=== PATIENT | female | born 1985 | race Caucasian/White ===

== ENCOUNTER 2022-01-15 09:12 | Outpatient (CLI) | payer BC ==
[2022-01-15 10:31] LABS: HCT - HEMATOCRIT 38.4 % (37.0-47.0); HGB - HEMOGLOBIN 13.3 g/dL (12.0-16.0); MEAN CORPUSCULAR HEMOGLOBIN 31.4 pg (27.0-31.0); MEAN CORPUSCULAR HGB CONC 34.6 g/dL (32.0-36.0); MEAN CORPUSCULAR VOLUME 90.8 fL (81.0-99.0); MEAN PLATELET VOLUME 9.8 fL (7.9-10.8); RED BLOOD COUNT 4.23 10^6/uL (4.20-5.40); RED CELL DISTRIBUTION WIDTH 13.1 % (12.0-15.0); WHITE BLOOD COUNT 14.4 x10^3/uL (4.8-10.8)
== END 2022-01-15 09:13 | disposition home or self-care (01) ==
LOC: LAB 09:12
PROVIDERS: ATTEND Nurse Practitioner Obstetrics & Gynecology
DX: Z36.9 Encounter for antenatal screening, unspecified (principal)
CPT/HCPCS: 36415; 82950; 85027

== ENCOUNTER 2022-02-04 16:32 | Outpatient (CLI) | payer BC ==
--- NOTE | 2022-02-05 11:07 | Ultrasound Report ---
PROCEDURE: OB F/U or Repeat INDICATIONS: SUPERVISION OF MATT OUTSIDE/PRIOR DATING DATA: Last menstrual period (LMP): 06/26/2021. LMP-based estimated date of delivery (SEE): 04/02/2022. First dating scan (date and location): Merged With [facility]. Estimated date of delivery (SEE) from first dating scan: 11/18/2021. The below data below was generated using the ultrasound SEE of 03/31/2022 TECHNIQUE: Real-time scanning was performed of the fetus, with image documentation and biometric measurements. T he COMPARISON: Merged With [facility] dated 11/18/2021 FINDINGS: General: A single living intrauterine gestation is present. Presentation: Vertex Placenta: Placental position is anterior, without previa. Amniotic fluid index: 18.6 cm, normal for gestational age. Largest pocket 6.2 cm heart rate: 155 beats per minute. Maternal cervical canal: 4.2 cm long; normal length is 2.5 cm or more. anatomy: Neuro, nuchal skin fold, face, spine, stomach, cord, and extremities were normal on prior ultrasound on 11/18/2021. Four-chamber view: Normal Outflow tracts: Normal Chest/diaphragm: Normal Stomach/abdomen: Normal Right kidney: Normal Left kidney: Normal Urinary bladder/pelvis: Normal IMPRESSION: 1. 32 week 1 day gestation by initial ultrasound. 2. Completion of anatomic survey. 3. SHAYLA 18.6 cm. Reviewed by: Eb Sahu on 02/05/2022 11:05 AM MANISHA Approved by: Eb Sahu on 02/05/2022 11:05 AM PDT Station ID: [id number]
== END 2022-02-04 16:33 | disposition home or self-care (01) ==
LOC: DI 16:32
PROVIDERS: ATTEND Nurse Practitioner Obstetrics & Gynecology
DX: Z34.03 Encounter for supervision of normal first pregnancy, third trimester (principal); Z3A.32 32 weeks gestation of pregnancy; Z36.89 Encounter for other specified antenatal screening

== ENCOUNTER 2022-03-28 07:12 | Inpatient (IN) | payer BC ==
[2022-03-28] MEDS ORDERED: METHYLERGONOVINE 0.2 MG/ML VIAL IM PRN (09:47)
[2022-03-28] MEDS ORDERED: NIFEdipine 10 MG CAPSULE PO PRN (09:47)
[2022-03-28] MEDS ORDERED: miSOPROStoL 200 MCG TABLET BC PRN (09:47)
[2022-03-28] MEDS ORDERED: OXYTOCIN 10 UNIT/ML VIAL IM PRN (09:47)
[2022-03-28] MEDS ORDERED: miSOPROStoL 200 MCG TABLET PR PRN (09:47)
[2022-03-28] MEDS ORDERED: TERBUTALINE 1 MG/ML VIAL SUBQ PRN (09:47)
[2022-03-28] MEDS ORDERED: SODIUM CHLORIDE FLUSH 0.9% 10 ML SYRINGE IVP PRN (09:47)
[2022-03-28] MEDS ORDERED: LABETALOL 20 MG/4 ML SYRINGE IVP PRN ×3 (09:47)
[2022-03-28] MEDS ORDERED: hydrALAZINE INJ 20 MG/ML VIAL IVP PRN ×2 (09:47)
[2022-03-28] MEDS ORDERED: TRANEXAMIC ACID IN NACL 1,000 MG/100 ML BAG IV PRN (09:47)
[2022-03-28] MEDS ORDERED: LIDOCAINE-MPF 1% 30 ML VIAL ID PRN (09:47)
[2022-03-28] MEDS ORDERED: OXYTOCIN/SODIUM CHLORIDE 500 ML IV PRN (09:47)
[2022-03-28] MEDS ORDERED: fentaNYL 100 MCG/2 ML VIAL IVP PRN (09:47)
[2022-03-28] MEDS ORDERED: CARBOPROST TROMETHAMINE 250 MCG/ML AMP IM PRN (09:47)
--- NOTE | 2022-03-28 09:56 | HISTORY & PHYSICAL EXAMINATION ---
Admit History - Visit Reason Visit Reason: Contractions - : 3 Parity: 2 Premature: 0 Ectopic: 0 : 0 Care: positive: [facility] Risk/History: positive: None Complications This : positive: None Smoking Status: Never smoker - Mother's Labs Mother's RH: positive: Positive GBS: positive: Group B Step Negative Rubella Status: positive: Immune Review of Systems - Constitutional Constitutional: denies: Fatigue, Fever, Chills, Malaise - Eyes Eyes: denies: Blurred vision, Spots in vision, Dipolpia - Cardiovascular Cariovascular: denies: Irregular heart rate, Chest pain, Edema - Respiratory Respiratory: denies: Cough, SOB at rest - Gastrointestinal Gastrointestinal: denies: Constipation, Diarrhea, Nausea, Vomiting - Integumentary Integumentary: denies: Rash, Pruritis - Neurological Neurological: denies: Headache - Psychiatric Psychiatric: denies: Depression, Anxiety Physical - Abdominal Exam Vital Signs: Temp Pulse Resp BP Pulse Ox 37.2 C 87 18 111/54 L 03/28/22 07:33 03/28/22 07:33 03/28/22 07:33 03/28/22 07:33 Contraction Intensity: positive: Moderate Uterine Resting Tone: positive: Soft - Monitoring Heart Rate Baseline: 150 Strip Review: positive: Category I - Presentation Presentation: positive: Vertex - Vaginal Exam Membranes: positive: Membranes intact Dilation (in cm): 3-4 Effacement (%): 50 Station: positive: -3 Cervical Position: positive: Posterior - Speculum Exam Speculum Exam Performed: positive: No Plan for Labor - Plan For Labor I expect patient to be DC'd or transferred within 96 hours.: Yes Plan for Labor: HPI: This 37yo @ 39.2wks gestation by LMP c/w 10.2wk U/S presents to [facility] with c/o contractions that began this morning at 0430. She denies vaginal bleeding or leakage of fluid and reports +FM. Upon arrival cervical was 3/50/-3, posterior and vertex with repeat SVE 1.5 hrs later 3-4/50/-3 and vertex. She continues to contract ever 2-5 minutes lasting 45-90 seconds with soft resting tone. She strongly desires to be admitted for management of labor and requests epidural. She has been a patient of [facility] since her transfer of care from [facility] at 27wks gestation. She has received consistent care through the duration of her which has remained uncomplicated. She is supported by her Neal and her sister Daphne. She will be admitted for labor augmentation. Dating Criteria: LMP 06/27/2021 Initial U/S @ 10.4wks gestation c/w LMP dating Serial exams: agree OB Hx: G1: 04/27/2018 @ 40.3, intact, female, [id number], epidural G2: 07/18/2020 @ 40.0, intact, female, 8lb4oz, epidural G3: current Medications: PNV Allergies: NKDA PMHx: HPV Surgical Hx: none Social Hx: Former social smoker. No ETOH or IVDA. Family Hx: craniosynestosis from early fusion of skull plate (daughter): Heart disease - MGF; HTN-MGF; Diabetes - mother, MGF; Depression - PGF, sister course: LMP 06/27/2021 Initial U/S @ 10.4wks gestation c/w LMP dating FINAL SEE 04/02/2022 __Positive; antibody negative Rubella immune; VZV immune NIPPS- negative; sex -female 12.4wk nuchal translucency 1.3 (WNL) FAS WNL with the exception or poor visualization of diaphragm. Anterior placenta, no previa. Size c/w dating. Completion FAS WNL 1hr GTT 136 GBS negative HSV - denies in self and partner Physical exam: Normocephalic, atraumatic Heart RRR w/o M/G/R Lungs CTAB Abdomen gravid, soft, nontender FHR baseline 150s, moderate variability, + accels, no decels Contractions palpate moderate every 3-5 minutes with soft resting tone SVE 3-4/50/-3, posterior. Vertex. Membranes intact. Bilateral LE's 1+ edema. Mood is good Assessment: 37yo @ 39.2wks gestation by LMP c/w 10.2wk U/S Early labor GBS neg FHR Category I Plan: Admit for active management of labor. Continuous monitoring. Epidural per maternal request. Initiate pitocin for labor augmentation with titration per procotol. [place] PRN. Nitrous oxide PRN. Anticipate .
[2022-03-28] MEDS ORDERED: SODIUM CHLORIDE FLUSH 0.9% 10 ML SYRINGE IVP SCH (10:00)
[2022-03-28] MEDS ORDERED: LACTATED RINGERS 1,000 ML ONE ×2 (10:13→14:44)
[2022-03-28 10:49] LABS: BASOPHILS # (AUTO) 0.1 10^3/uL (0.0-0.1); BASOPHILS % (AUTO) 0.4 %; EOSINOPHILS % (AUTO) 0.3 %; HCT - HEMATOCRIT 37.4 % (37.0-47.0); HGB - HEMOGLOBIN 12.6 g/dL (12.0-16.0); LYMPHOCYTES # (AUTO) 2.6 10^3/uL (1.5-3.5); LYMPHOCYTES % (AUTO) 18.8 %; MEAN CORPUSCULAR HEMOGLOBIN 29.6 pg (27.0-31.0); MEAN CORPUSCULAR HGB CONC 33.7 g/dL (32.0-36.0); MEAN PLATELET VOLUME 12.4 fL (7.9-10.8); MONOCYTES % (AUTO) 7.1 %; NEUTROPHILS % (AUTO) 72.5 %; PLT - PLATELET COUNT 191 10^3/uL (130-450); RED BLOOD COUNT 4.25 10^6/uL (4.20-5.40); RED CELL DISTRIBUTION WIDTH 12.4 % (12.0-15.0); WHITE BLOOD COUNT 13.8 x10^3/uL (4.8-10.8)
[2022-03-28] MEDS ORDERED: ROPIVACAINE 0.2% 200 MG/100 ML BAG EP ONE (11:46)
[2022-03-28] MEDS: OXYTOCIN/SODIUM CHLORIDE 500 ML IV SCH (12:20)
[2022-03-28] MEDS ORDERED: NALOXONE 0.4 MG/ML VIAL IVP PRN (12:54)
[2022-03-28] MEDS ORDERED: NALBUPHINE 10 MG/ML AMP IVP PRN (12:54)
[2022-03-28] MEDS ORDERED: diphenhydrAMINE INJ 50 MG/ML VIAL IVP PRN (12:54)
[2022-03-28] MEDS ORDERED: ePHEDrine 50 MG/ML VIAL IVP PRN (12:54)
[2022-03-28] MEDS ORDERED: ONDANSETRON 4 MG/2 ML VIAL IVP PRN (12:54)
[2022-03-28] MEDS ORDERED: METOCLOPRAMIDE 10 MG/2 ML VIAL IVP PRN (12:54)
[2022-03-28] MEDS ORDERED: ROPIVACAINE 0.2% 200 MG/100 ML BAG EP PRN (12:54)
--- NOTE | 2022-03-28 12:54 | ANESTHESIA ---
Pre-Anesthesia VS, & Labs - Diagnosis active labor - Procedure labor epidural Vital Signs: Temp Pulse Resp BP Pulse Ox 37.2 C 87 18 111/54 L 03/28/22 11:34 03/28/22 07:33 03/28/22 07:33 03/28/22 07:33 Height: 5 ft 7 in - NPO Other (ate 1130) - Is Patient ?: Yes - Lab Results Current Lab Results: Laboratory Tests 03/28/22 10:30: WBC 13.8 H, RBC 4.25, Hgb 12.6, Hct 37.4, MCV 88.0, MCH 29.6, MCHC 33.7, RDW 12.4, Plt Count 191, MPV 12.4 H, Neut # (Auto) 10.0 H, Lymph # (Auto) 2.6, [place] # (Auto) 1.0, Eos # (Auto) 0.0, Baso # (Auto) 0.1, Absolute Nucleated RBC 0.00, Nucleated RBC % 0.0 03/28/22 10:30: Blood Type AB POSITIVE, Antibody Screen NEGATIVE Fish Bones: 03/28/22 10:30 Home Medications and Allergies Active Medications Carboprost Tromethamine (Carboprost Tromethamine 250 Mcg/Ml Amp) 250 mcg IM .ONCE PRN PRN Reason: Hemorrhage Fentanyl (Fentanyl 100 Mcg/2 Ml Vial) 50 mcg IVP Q1H PRN PRN Reason: Severe Pain (score 7-10) Hydralazine HCl (Hydralazine Inj 20 Mg/Ml Vial) 5 - 10 mg IVP Q20M PRN; Protocol PRN Reason: SBP> or= 160 OR DBP> or= 110 Hydralazine HCl (Hydralazine Inj 20 Mg/Ml Vial) 10 mg IVP .ONCE PRN; Protocol PRN Reason: SBP> or= 160 OR DBP> or= 110 Oxytocin/Sodium Chloride (Pitocin/Sodium Chloride) 500 mls @ 999 mls/hr IV PRN PRN; Protocol PRN Reason: POST- HEMORR PREVENTION Tranexamic Acid (Tranexamic 1,000 Mg/100ml-Nacl) 1,000 mg in 100 mls @ 600 mls/hr IV Q30M PRN PRN Reason: EBL >1200mL and within 3hr Oxytocin/Sodium Chloride (Pitocin/Sodium Chloride) 500 mls @ 1 mls/hr IV TITR MICHELE; Protocol Labetalol HCl (Labetalol 20 Mg/4 Ml Syringe) 20 - 80 mg IVP Q10M PRN; Protocol PRN Reason: SBP> or= 160 OR DBP> or= 110 Labetalol HCl (Labetalol 20 Mg/4 Ml Syringe) 20 mg IVP .ONCE PRN; Protocol PRN Reason: SBP> or= 160 OR DBP> or= 110 Labetalol HCl (Labetalol 20 Mg/4 Ml Syringe) 20 - 40 mg IVP Q10M PRN; Protocol PRN Reason: SBP> or= 160 OR DBP> or= 110 Lidocaine HCl (Lidocaine-Mpf 1% 30 Ml Vial) 30 ml ID ONCE PRN PRN Reason: PERINEAL REPAIR Stop: 03/29/22 09:47 Methylergonovine Maleate (Methylergonovine 0.2 Mg/Ml Vial) 0.2 mg IM .ONCE PRN PRN Reason: Hemorrhage Misoprostol (Misoprostol 200 Mcg Tablet) 600 mcg BC .ONCE PRN PRN Reason: Hemorrhage Misoprostol (Misoprostol 200 Mcg Tablet) 800 mcg MT .ONCE PRN PRN Reason: Hemorrhage Nifedipine (Nifedipine 10 Mg Capsule) 10 - 20 mg PO Q20M PRN; Protocol PRN Reason: SBP> or= 160 OR DBP> or= 110 Oxytocin (Oxytocin 10 Unit/Ml Vial) 10 unit IM .ONCE PRN PRN Reason: Step One if no IV access. Sodium Chloride (Sodium Chloride Flush 0.9% 10 Ml Syringe) 10 ml IVP PRN PRN PRN Reason: NEEDED PER PROVIDER ORDERS Sodium Chloride (Sodium Chloride Flush 0.9% 10 Ml Syringe) 10 ml IVP Q8H MICHELE Terbutaline Sulfate (Terbutaline 1 Mg/Ml Vial) 0.25 mg SUBQ .ONCE PRN PRN Reason: Tachystole Anes History & Medical History - Anesthetic History Anesthesia Complications: reports: No previous complications Family history of Anesthesia Complications: Denies Family history of Malignant Hyperthermia: Denies - Medical History Cardiovascular: reports: None Pulmonary: reports: None Gastrointestinal: reports: None Urinary: reports: None Neuro: reports: None Smoking Status: Never smoker - Obstetrical History : 3 Parity: 2 Events: reports: None Complications: reports: None Exam General: Alert, Oriented x3, Cooperative Dental: WNL Mouth Openin Fingerbreadth Neck Mobility: Normal Mallampati classification: II Thyromental Distance: 4-6 cm Respiratory: Lungs clear Cardiovascular: Regular rate Plan Anesthesia Type: Epidural Consent for Procedure(s) Verified and Reviewed: Yes Code Status: Attempt Resuscitation ASA classification: 2-Mild systemic disease Is this case an emergency?: No
--- NOTE | 2022-03-28 12:54 | ANESTHESIA PROCEDURE NOTE ---
Anesthesia Epidural Template - Patient Report Patient Reports: positive: Pain controlled - Plan Plan: positive: Continue current management
[2022-03-28] MEDS ORDERED: ONDANSETRON 4 MG/2 ML VIAL ONE (14:08)
--- NOTE | 2022-03-28 14:51 | CONSULTATION NOTE ---
Consultation Report: pt c/o feeling too numb and heavy in her legs, with barely noticeable contractions. pt would like to decrease epidural dose. epidural rate decreased from 10cc IB q45min to 8cc IB Q45min. Pt educated about what to look for and expected time frame to notice change in sensation, considering next bolus due in 24min. pt states understanding and is agreeable.
[2022-03-28] MEDS: LACTATED RINGERS 1,000 ML IV SCH (15:01)
[2022-03-28] MEDS ORDERED: WITCH HAZEL/GLYCERIN 1 PAD TOP PRN (17:44)
[2022-03-28] MEDS ORDERED: HYDROCORTISONE 1% CREAM 28 GM TUBE PR PRN (17:44)
--- NOTE | 2022-03-28 17:48 | PROVIDER PROGRESS NOTE ---
Labor Progress Note - Uterine Monitoring Uterine Monitoring Mode: positive: External toco Contraction Intensity: positive: Strong Uterine Resting Tone: positive: Soft - Monitoring Monitor Mode: positive: External ultrasound Heart Rate Baseline: 150 Heart Rate Variability: positive: Moderate (6-25 bmp) Accelerations: positive: Present, 15x15 Decelerations: positive: None Strip Review: positive: Category I - Vaginal Exam Dilation (in cm): 6 Effacement (%): 80 Station: -2 Cervical Position: Midposition - Labor Progress Note Labor Progress Note/Additional Text: S: Feeling comfortable with her epidural. and sister supportive at the bedside. O: FHR baseline 150s, moderate variability, + accels, no decels Contractions palpate strong every 2-4 minutes with soft resting tone AROM large amount of clear fluid A: 37yo @ 39.2wks gestation by LMP c/w 10.2wk U/S Active labor Pitocin @ 6mU/mL GBS neg FHR Category I P: Continue pitocin for labor augmentation with titration per protocol Continuous monitoring Maintain epidural for pain management. Anticipate .
--- NOTE | 2022-03-28 17:54 | DELIVERY NOTE ---
Delivery Note - Labor Labor: positive: Augmented by ARM - Infant Delivery Method Delivery Method: positive: Spontaneous vaginal delivery - Presentation Presentation: positive: Vertex, ANGEL - right occiput anterior - Nuchal Cord Nuchal Cord: positive: None - Amniotic Fluid Description Amniotic Fluid Description: positive: Clear - Episiotomy Type Episiotomy Type: positive: None - Laceration Laceration: positive: None - Delivery Outcome Delivery Outcome: positive: Livebirth - [place] : positive: Placed in direct skin contact with mother, Stimulated, Warmed, [place] used sex: positive: Female - Cord Cord: positive: 3 vessels - Placenta Placenta: positive: Intact, Spontaneous - Estimated Blood Loss Estimated Blood Loss (in cc): 150 - Post Delivery Events Post Delivery Events: positive: No post delivery events - Delivery Comments (Free Text/Narrative) Delivery Comments (Free Text/Narrative): Labor: This 37yo @ 39.2wks gestation by LMP c/w 10.2wks gestation presented to [facility] in early labor. Cervix was 3/50/-3, posterior and vertex. FHR pattern demonstrated 150bpm baseline in a Category I pattern throughout labor. Epidural placed per maternal request. Augmentation with pitocin for a maximum infusion rate of 6mU/mL. AROM occurred at 1525 and was noted to be a large amount of clear fluid. Pt progressed to c/c/+1 @ 1715. : Normal SVB of viable female on 03/28/2022 @ 1728. No nuchal cord. The was placed on maternal abdomen, stimulated, dried, and placed skin to skin. Apgars were 8/9 at 1 and 5 minutes respectively. Pitocin administered via IV for hemostasis. The umbilical cord was allowed to stop pulsating at which time it was doubly clamped by CNM and cut by FOB. Cord blood was obtained. 3VC. Fundal massage and gentle cord traction were applied for active management of the third stage. Placenta delivered spontaneously and intact @ 1733. EBL 150mL. Fourth stage: Uterine fundus firm and there is no excessive bleeding. The perineum, vagina, and cervix were inspected and found to be intact. initiated. Family bonding well. Both mother and baby were left in stable condition.
[2022-03-28] MEDS: ACETAMINOPHEN 500 MG TABLET PO SCH (18:34)
[2022-03-28] MEDS: IBUPROFEN 800 MG TABLET PO SCH (18:34)
[2022-03-28] MEDS: DOCUSATE SODIUM 100 MG CAPSULE PO SCH (20:31)
[2022-03-29] MEDS: IBUPROFEN 800 MG TABLET PO SCH ×3 (00:04→11:53)
[2022-03-29] MEDS: OXYTOCIN/SODIUM CHLORIDE 500 ML IV SCH (00:15)
[2022-03-29] MEDS: ACETAMINOPHEN 500 MG TABLET PO SCH ×3 (01:58→17:44)
[2022-03-29] MEDS: DOCUSATE SODIUM 100 MG CAPSULE PO SCH (09:58)
--- NOTE | 2022-03-29 10:34 | Discharge Plan ---
Discharge Plan Problem Reviewed?: Yes Disposition: Home, Self Care Condition: Good Diet: Regular Activity Restrictions: No Restrictions Shower Restrictions: No Driving Restrictions: No Weight Bearing: Full Weight Instruction Topics: Vaginal After No Smoking: If you smoke, Please STOP! Call for help. Follow-up with: Marily Nguyen CNM, ARNP [Provider Admit Priv/Credential] - 1 Week (04/06/2022 @ 09:15am telehealth visit with [facility].)
--- NOTE | 2022-03-29 10:50 | DISCHARGE SUMMARY ---
Discharge Summary Condition at Discharge: Good Discharge Disposition: 01 Home, Self Care - HOSPITAL COURSE Hospital Course: Date of Admission: 03/28/2022 Date of Discharge: 03/29/2022 Diagnosis on Admission: 1. 37yo @ 39.2wks gestation by LMP c/w 10.2wk U/S 2. Early labor 3. GBS neg 4. FHR Category I Diagnosis on Discharge: 1. 36yo PPD#1 s/p TSVD 2. 3. Normal recovery Brief History: She is a patient of [facility] who presented on 03/28/2022 with c/o contractions. Upon arrival cervix was 3/50/-3, posterior and vertex. FHR demonstrated Category I pattern throughout labor. Epidural placed per maternal request. Augmentation with pitocin for a maximum infusion rate of 6mU/mL. AROM large amount of clear fluid. She progressed to spontaneously deliver a viable female on 03/28/2022 at 1728. Apgars were 8/9 at and 1 and 5 minutes respectively. Perineum, cervix, and vaginal inspected and found to be intact. She has been doing well in her course. She is ambulating and tolerating a regular diet. She is urinating without difficulty and her lochia is normal. Her pain is well controlled with oral medications. She will be discharged to [facility] status today on day #1 with instructions to continue taking her vitamin while and to continue taking ibuprofen and tylenol over the counter as needed for pain management. She intends to follow up with myself at [facility] in 1 week or sooner if needed. She has been given precautions to call if she has any worsening fevers, chills, abdominal pain, increased vaginal bleeding or foul smelling vaginal lochia. - ALLERGIES Allergies/Adverse Reactions: Allergies Allergy/AdvReac Type Severity Reaction Status Date / Time No Known Drug Allergies Allergy Verified 03/28/22 15:20 - LABS Result Diagrams: 03/28/22 10:30
[2022-03-29] MEDS: LACTATED RINGERS 1,000 ML IV SCH (12:30)
[2022-03-29 16:31] VITALS: BP 118/63
--- NOTE | 2022-03-29 20:48 | Labor Flowsheet ---
Labor Flowsheet Datetime Report Generated by CPN: 03/29/2022 20:48 Datetime: 03/29/2022 16:09 VITAL SIGNS NBP Sys/Samina/Mean (mmHg): 118 : 63 : 73 Pulse: 73 Datetime: 03/28/2022 21:20 SpO2 (%): 99 Datetime: 03/28/2022 18:46 Stage of : Recovery Datetime: 03/28/2022 18:01 Respirations: 16 Datetime: 03/28/2022 17:49 Temperature (C): 36.9 Temperature Route: Oral PAIN Pain Presence: None/Denies Pain Location: Abdomen Datetime: 03/28/2022 17:45 COMMUNICATION LaborFlag: Labor Datetime: 03/28/2022 17:28 STAGE 2 Pushing Position: Pushing with Contractions Pushing Progress: Descent with Pushing Stage 2 Comments: pushed for 25 secords only Datetime: 03/28/2022 17:16 UTERINE ACTIVITY Monitor Mode: External Frequency (min): 2-2.5 Quality: Strong Duration (sec): 70-80 Pattern: Normal: <= 5 Contractions in 10 Minutes Resting Tone (Palpate): Relaxed ASSESSMENT A Monitor Mode: Telemetry FHR Baseline Rate : 140 FHR Baseline Changes: No Baseline Change Variability: Moderate 6-25 bpm Accelerations: 15X15 Decelerations: Variable VAGINAL EXAM Dilatation (cm): 10.0 Station: -1 Exam by: Silvina Judd RN Cervix, Consistency: Soft Cervix, Position: Anterior PATIENT CARE Oxygen Method: Room Air Datetime: 03/28/2022 17:01 Pitocin Checklist: At Least 1 Acceleration of 15 bpm x 15 Seconds in 30 Minutes or Adequate Variabi lity; No More than 1 Late Deceleration Occurred in Past 30 Minutes; No More than 2 Variable Decelerat ions > 60 Seconds in Duration and decreasing >60 bpm in 30 minutes; No More than 5 Uterine Contractio ns in 10 Minutes for any 20 Minute Interval; Uterus Palpates Soft between Contractions Category: Category I Anesthesia Level Check: T10- Umbilicus Datetime: 03/28/2022 15:31 [place] UNITS (Computed) Contractions in Ten Minutes: 5 Datetime: 03/28/2022 15:26 Membrane Status: Ruptured Membranes Ruptured Date/Time: 03/28/2022 15:25 Membranes Rupture Method: Artificial Amniotic Fluid Color: Clear Amniotic Fluid Amount: Large Amniotic Fluid Odor: Normal Vaginal Bleeding: Normal Show Presentation 'A': Cephalic Datetime: 03/28/2022 15:10 MEDICATIONS Pitocin (milliunits): Increased to @ 6 Datetime: 03/28/2022 14:45 Anesthesia Comments: Miriam Sanders [employer] decrease epidural rate per pt request Datetime: 03/28/2022 14:04 Effacement (%): 80 Nitrazine: Negative Patient Position/Activity: Left Tilt; High Fowlers Hygiene: Marcelle Care I/O Interventions: Walker Cath Inserted Datetime: 03/28/2022 12:08 ANESTHESIA Anesthesia Plans: Epidural Epidural Procedure: Loading Dose Epidural Procedure Other: Pump Started Datetime: 03/28/2022 11:56 Epidural Positioning: Sitting Datetime: 03/28/2022 11:49 PROCEDURE TIME OUT Procedure Verify: Correct Patient Identity; Correct Side and Site are Marked; Accurate Procedure Co nsent Form; Agreement on Procedure to be Done; Correct Patient Position; Safety Precautions Based on Patient History or Medication Use
--- NOTE | 2022-04-02 12:12 | PROCEDURE REPORT ---
- HPI Diagnosis/Indication for NST: Other Current EDU 04/02/22 Gestation 39 Weeks and 2 Days 3 Para 2 Vital Signs Temperature 37.2 C 03/28/22 07:33 Heart Rate 87 03/28/22 07:33 Respiratory Rate 18 03/28/22 07:33 Blood Pressure 111/54 L 03/28/22 07:33 Temperature 36.6 C 03/29/22 16:30 Heart Rate 78 03/29/22 16:30 Respiratory Rate 18 03/29/22 16:30 Blood Pressure 118/63 03/29/22 16:30 O2 Saturation 100 03/29/22 16:30 - NST Procedure NST Procedure Start Date 03/28/22 Start Time 07:30 Stop Time 08:00 Vibroacoustic Stimulation Used No Patient States Movement Yes - Results and Plan Plan: NST performed 03/28/2022 NST read 03/28/2022 FHR baseline 150s, moderate variability, + accels, no decels Contractions palpate moderate every 3-5 minutes with soft resting tone
== END 2022-03-29 20:47 | disposition home or self-care (01) | DRG 807 ==
LOC: WFO 07:12 → FBP 07:14 → WFO 09:46 → FBP 09:47
PROVIDERS: ADMIT Nurse Practitioner Obstetrics & Gynecology; ATTEND Nurse Practitioner Obstetrics & Gynecology
PROC: 10E0XZZ Delivery of Products of Conception, External Approach (ICD-10-PCS; principal; 2022-03-28)
PROC: 10907ZC Drainage of Amniotic Fluid, Therapeutic from Products of Conception, Via Natural or Artificial Opening (ICD-10-PCS; 2022-03-28)
DX: O80 Encounter for full-term uncomplicated delivery (principal); Z37.0 Single live birth; Z3A.39 39 weeks gestation of pregnancy; Z87.891 Personal history of nicotine dependence
CPT/HCPCS: 59025; 85025; 86850; 86900; 86901; 99215; A9270; J7120